=== PATIENT | male | born 1985 | race Caucasian/White ===

== ENCOUNTER 2016-10-01 11:41 | Outpatient (CLI) | payer OTHER ==
--- NOTE | 2016-10-01 17:21 | Diagnostic Imaging Report ---
[facility] [id number] [id number] Report Submission Date: Oct 01, 2016 2:57:18 PM DIRECTOR CARD Patient Study Name: MELI BANDA Date: Oct 01, 2016 11:54:28 AM DIRECTOR CARD Modality Type: US Gender: M Description: US SCROTUM & CONTENTS : 85 Institution: [facility] Physician: LISANDRA JOHNSON Scrotal ultrasound Clinical history: Right-sided scrotal pain for 1 week. History of epididymitis. Technique: Real time sonography of the scrotum is performed in transverse and longitudinal views. Doppler interrogation and color flow imaging are additionally used. Findings: Right testis measures 4.0 cm in length by 2.5 x 3.2 cm in size with a calculated volume of 16.8 ml. Left testis measures 3.8 cm in length by 2.2 x 2.8 cm in size with a calculated volume of 12.3 ml. Testicular echotexture is homogeneous. There is no cystic or solid mass. Blood flow is confirmed in both testes on color-flow imaging and Doppler interrogation. There is no significant hydrocele or varicocele. 7 mm left epididymal cyst is incidentally noted. Impression: 1. 7 mm left epididymal cyst. 2. Normal blood flow is confirmed in the testes. Electronically signed on Oct 01, 2016 2:57:18 PM DIRECTOR CARD by: Luis Alberto MORALES
== END 2016-10-01 11:42 ==
LOC: RAD 11:41
PROVIDERS: ATTEND Family Medicine
DX: N50.3 Cyst of epididymis (principal)
CPT/HCPCS: 76870